=== PATIENT | male | born 1965 | race Caucasian/White ===

== ENCOUNTER 2018-01-26 14:18 | Emergency (ER) | payer OTHER, SELFPAY ==
[2018-01-26 14:29] VITALS: BP 177/99; PULSE 81; RESP 18; TEMP 37.1; O2SAT 95
--- NOTE | 2018-01-26 14:53 | DI.REPORT_ITS ---
SYMPTOM/DIAGNOSIS: PAIN, SWELLING AFTER BLUNT TRAUMA RIGHT LEG: There is no evidence of a fracture or dislocation. A small collection of gas is identified in the anterior soft tissues of the anterior upper leg. No foreign body is demonstrated.
--- NOTE | 2018-01-26 14:56 | ED.GENADUL ---
Disposition Clinical Impression: Right anterior sanchez laceration Disposition: HOME Condition: Improving Additional Instructions: Follow-up with regular doctor in [facility] for recheck in 48 hours time. Take Keflex as prescribed for 48 hours. Return or see her nearest health care provider if you develop severe increase in pain or numbness of the foot. Prescriptions: Cephalexin [Keflex] 500 mg PO TID 2 Days #6 cap Medical Decision Making - Radiology Data Radiology results: report reviewed, image reviewed - Medical Decision Making 53-year-old otherwise healthy male with a right anterior sanchez laceration and now massive swelling and hematoma formation. Referred for x-ray to rule underlying bony injury or foreign body. Case discussed and patient seen by Dr. Copeland in the emergency department where he performed exploration and cautery of the wound. No evidence of compartment syndrome. X-ray without underlying bony injury or foreign body. Patient redressed by Dr. Copeland in the ED. Given instructions on return or follow-up at the bedside by Dr. Copeland and myself. Tetanus status updated. Will place on 48 hours of Keflex. Patient to follow-up with primary care in [facility] for recheck. History of Present Illness - General Chief complaint: Laceration Stated complaint: LEG LACERATION Time Seen by Provider: 01/26/18 14:40 Source: patient, RN notes reviewed Mode of arrival: ambulatory Limitations: no limitations - History of Present Illness Initial comments: 53-year-old male presents after jumping off his boat approximately 2 hours ago and striking right anterior sanchez on the dock. He suffered an approximate 3 cm laceration that was improved with pressure and dressing was applied at the scene. He says he developed massive right lower extremity swelling and sensation of numbness of his foot. No inability to walk. He was not injured in any other way. His tetanus status is out of date. - Related Data Aspirin [Ecotrin] 325 mg PO DAILY 01/26/18 Cephalexin [Keflex] 500 mg PO TID 2 Days #6 cap 01/26/18 Allergies Allergy/AdvReac Type Severity Reaction Status Date / Time No Known Allergies Allergy Unverified 01/26/18 14:31 Review of Systems Other: For systems reviewed, otherwise no General Exam - General Limitations: no limitations General appearance: alert, in no apparent distress - Head Head exam: Present: atraumatic, normocephalic - Eye Eye exam: Present: PERRL, EOMI - Respiratory Respiratory exam: Present: normal lung sounds bilaterally. Absent: respiratory distress - Extremities Exam Extremities exam: Present: normal capillary refill, other (2+ DP bilaterally. Cap refill less than 2 seconds. There is right anterior mid sanchez 3 cm vertically oriented laceration with oozing of blood. There is massive lateral versus medial swelling) - Neurological Exam Neurological exam: Present: alert, oriented X3 - Psychiatric Psychiatric exam: Present: normal affect, normal mood Course Vital Signs - 24 hr 01/26/18 14:29 Temperature 37.1 C Pulse 81 Respiratory 18 Rate Blood Pressure 177/99 Pulse Oximetry 95
[2018-01-26] MEDS: Cephalexin 500 MG CAP PO (16:17)
[2018-01-26] MEDS: Tetanus & Diphtheria Tox,ADULT 0.5 ML VIAL IM (16:18)
--- NOTE | 2018-01-26 16:26 | DI.VRAD_ITS ---
EXAM: XR Right Tibia and Fibula, 2 Views EXAM DATE/TIME: 01/26/2018 2:53 PM CLINICAL HISTORY: 53 years old, male; Injury or trauma; Injury history: Stepping off a boat scraping; Initial encounter; Abrasion and bleeding / hemorrhage; Lower leg; Right; Injury date: 01/26/2018 TECHNIQUE: XR Right tibia and fibula 2 views COMPARISON: No relevant prior studies available. FINDINGS: Bones/joints: Small calcaneal spur. No fracture. Soft tissues: There is a small focus of air in the subcutaneous tissue of anterior upper leg. IMPRESSION: 1. No acute fracture. 2. Small focus of air in the subcutaneous tissue of upper leg anteriorly. Dictated and Authenticated by: Raghav Phipps MD. Ordering:TRAVIS WHITE MD
--- NOTE | 2018-01-28 15:38 | OCONE_ITS ---
DATE OF CONSULTATION: January 26, 2018 CHIEF COMPLAINT: Right leg wound. ASSESSMENT AND PLAN: Calvin is a 53-year-old who had this right anterior tibial laceration. It is lik karson that he suffered a vascular injury, most likely of the anterior tibial artery or a branch of it. This artery runs along in the anterior tibialis muscle on the lateral border of the tibia and is mos t likely withdrawn into the muscle itself. His symptoms were quite benign at first and I think with motion he disrupted the early clotting process. While he does have significant swelling of the anter olateral leg, it is quite soft. The blood is expressible from the wound and, therefore, he has a par tial fasciotomy already. He has no pain with passive stretch. He does have some dysesthesias but th is would be expected with the location of the blow to the leg from contusion at minimum. He does not have suzie numbness. He has a warm and well perfused foot. Therefore, I do think holding some compression on this wound to allow his body to clot off the injury makes the most sense. I would not close the wound at this time. He will receive a tetanus vaccine. He is going to follow this closely. If he has any increase in pain with passive range of motion, o r active range of motion for that matter, he is to go to the Emergency Department for urgent evaluati on. I do find that it is unlikely this will development into a compartment syndrome, yet it is possi ble. A wrap was left on the leg for about 30 minutes which noted to have significant improvement wit h the oozing from the wound. It therefore was left in place and he was to travel back to home [facility]. All of his questions were answered. He may weight bear as tolerated but is to elevate th e leg strictly over the next 24 to 48 hours. HISTORY OF PRESENT ILLNESS: Calvin is a 53-year-old who was jumping off his boat onto the dock when he missed and he struck the anterior aspect of his right sanchez. This happened at about the midportion o f the leg. There is a laceration. There was some bleeding at first but this seemed to stop with luis e pressure and bandage. However, when he was leaving and was standing at the gas station he noticed a significant increase in the bleeding and also swelling of the foot. He had noticed some numbness a t the time and this seemed to increase as the bleeding increased. He was then brought into the Emergency Department. He was able to ambulate. He reported some dysest hesias around the dorsum of the foot, worst between the first and second toes. He denied any pain wi th ankle range of motion or toe range of motion. He was unsure of his tetanus status. REVIEW OF SYSTEMS: A ten-point review of systems was negative except as noted in the history of pres ent illness. PAST MEDICAL HISTORY: None. PAST SURGICAL HISTORY: Left ankle fracture ORIF. EXAMINATION: Evaluation of the right leg shows a transverse laceration of the midportion of the leg just lateral to the tibial spine. There is some muscle which is seen in the deep portions of the wou nd. There is a general ooze from the wound itself. There is no bone visible. The surrounding skin is not compromised except for some superficial abrasion extending from that laceration proximally tow ards the knee. There is fullness to the anterolateral aspect of the knee but it is compressible. He has excellent ankle dorsiflexion and plantar flexion actively and passively. He tolerates active ex tension and flexion of the toe without discomfort and without increase in pain. He is able to aspen and invert the foot, again without discomfort or pain. Over the foot he has some decreased sensation between the first and second toes but does still report sensation. He has some dysesthesias over th e superficial peroneal distribution. None over the tibial nerve. The wound was prepped with Betadine and sterilely explored. With some manual pressure blood was able to be expressed from the deep aspects of the wound. There was some more significant oozing at this time. There was what appeared to be a vein more towards the superficial aspect which was cauterized in the field. There still was a persistent ooze which would stop with some pressure. The compartment was still noted to be compressible yet full. I then applied a compressive wrap around th e leg which seemed to diminish the bleeding without any increase in symptoms. IMAGING: X-ray of the right tib-fib. This shows no fracture. There is soft tissue swelling seen. No other bony injury is appreciated.
== END 2018-01-26 16:34 | disposition home or self-care (01) ==
PROVIDERS: Emergency Provider Emergency Medicine
DX: S81.811A Laceration without foreign body, right lower leg, initial encounter (principal); M79.89 Other specified soft tissue disorders; W26.8XXA Contact with other sharp object(s), not elsewhere classified, initial encounter
CPT/HCPCS: 90471; 99284; 73590